=== PATIENT | female | born 1935 | race American Indian/Alaskan Native ===

== ENCOUNTER 2019-01-30 09:09 | Outpatient (CLI) | payer MEDICARE ==
--- NOTE | 2019-01-30 15:10 | Mammography Report ---
UNSUCCESSFUL STEREOTACTIC LEFT BREAST BIOPSY : 01/30/19 09:09:00 CLINICAL: 83-year-old with a single group of upper-outer calcifications. COMPARISON:01/18/19 and 09/01/18 mammograms FINDINGS: Consent for the procedure was obtained. The patient was placed on the stereotactic table. However, successful targeting of the calcifications due to the relative low density and faintness of the calcifications. Targeting was attempted from both lateral and CC from above approaches. IMPRESSION: Unsuccessful targeting for stereotactic biopsy procedure. Recommend 6 month followup left mammogram with magnification views of calcifications if surgical excision is not planned.
== END 2019-01-30 09:10 | disposition home or self-care (01) ==
LOC: SPVWC 09:09
PROVIDERS: ATTEND Surgery
DX: R92.8 Other abnormal and inconclusive findings on diagnostic imaging of breast (principal); R92.0 Mammographic microcalcification found on diagnostic imaging of breast; E78.00 Pure hypercholesterolemia, unspecified; I10 Essential (primary) hypertension; J44.9 Chronic obstructive pulmonary disease, unspecified; Z88.6 Allergy status to analgesic agent; Z79.899 Other long term (current) drug therapy; Z88.5 Allergy status to narcotic agent; Z88.8 Allergy status to other drugs, medicaments and biological substances; Z86.2 Personal history of diseases of the blood and blood-forming organs and certain disorders involving the immune mechanism

== ENCOUNTER 2021-01-14 13:26 | Emergency (ER) | payer MEDICARE ==
[2021-01-14 17:38] VITALS: BP 132/67
--- NOTE | 2021-01-14 18:02 | XRay Report ---
LEFT FOOT 3 VIEW(S) INDICATION / CLINICAL INFORMATION: pain in left foot with hardened callus . Bump on the inside of the left foot above the arch. COMPARISON: None available. FINDINGS: BONES / JOINT(S): No acute fracture or subluxation. Mild hallux valgus deformity. Mildly prominent me dial process of the navicular and the midfoot. SOFT TISSUES: Mild medial midfoot soft tissue swelling. ADDITIONAL FINDINGS: None. Signer Name: Neha Paz MD Signed: 01/14/2021 5:58 PM Workstation Name: [id number]
--- NOTE | 2021-01-14 18:08 | Emergency Department Report ---
ED Extremity Problem HPI - General Chief complaint: Extremity Problem,Nontraumatic Stated complaint: LEFT FOOT PROBLEM Time Seen by Provider: 01/14/21 17:37 Source: patient Mode of arrival: Ambulatory Limitations: No Limitations - History of Present Illness Initial comments: Patient is a 85-year-old female presents emergency room complaints of left foot pain that occurred today. She states that she was taking a bath and using a pumice stone to scrub her feet. She states that she noticed a knot to the bottom of her foot. She denies any fall or injury. She denies any leg swelling or calf pain. She denies any recent travel, recent surgery, recent immobilization. She denies any history of DVT. She states that she does have a instrument lens grinder apprentice Dr. Devi and is planning to see him on January 22, 2021. Past medical history of COPD, diabetes, hypertension, hyperlipidemia. - Related Data Home Medications Medication Instructions Recorded Confirmed Last Taken Biotin [Biotin 1] 1,000 mg PO DAILY 10/18/13 10/25/15 10/23/15 yes Budesoni/Formoterol 80-4.5(Nf) 2 puff INHALATION BID 10/18/13 10/25/15 10/22/15 [Symbicort 80-4.5 (Nf)] 2 PUFF Calcium Carb & Citrate/Vit D3 1 tab PO DAILY 10/18/13 10/25/15 10/22/15 [Calcium + Vitamin D3 Caplet] 1 TAB Multivitamin [Multi-Vitamin Daily] 1 tab PO DAILY 10/18/13 10/25/15 10/22/15 1 TAB Boston-3 Fatty Acids/Fish Oil [Cvs 1 each PO DAILY 10/18/13 10/25/15 10/25/15 Fish Oil 1,200 mg Softgel] yes Theophylline Anhydrous [Edwin-24] 300 mg PO DAILY 10/18/13 10/25/15 10/25/15 yes Triamter/Hctz 37.5-25 mg 37.5 mg PO DAILY 10/18/13 10/25/15 10/25/15 [Maxzide-25] yes Verapamil HCl [Calan Sr] 120 mg PO DAILY 10/18/13 10/25/15 10/25/15 yes allopurinoL [Zyloprim] 300 mg PO QDAY 10/18/13 10/25/15 10/25/15 yes Naproxen [Naproxen TAB] 250 mg PO BID PRN 10/25/15 10/25/15 10/25/15 yes Red Yeast Rice 600 mg PO DAILY 10/25/15 10/25/15 10/25/15 yes Previous Rx's Medication Instructions Recorded Last Taken Type Acetaminophen [Tylenol] 650 mg PO Q8HR PRN #20 capsule 01/14/21 Unknown Rx Allergies Allergy/AdvReac Type Severity Reaction Status Date / Time alendronate sodium Allergy Unknown Verified 01/14/21 17:22 aspirin Allergy Rash Verified 01/14/21 17:22 chocolate flavor Allergy Anaphylaxis Verified 01/14/21 17:22 codeine Allergy Rash Verified 01/14/21 17:22 lactose AdvReac Angioedema Verified 01/14/21 17:22 IV CONTRAST Allergy Anaphylaxis Uncoded 01/14/21 17:22 ED Review of Systems ROS: Stated complaint: LEFT FOOT PROBLEM Other details as noted in HPI Comment: All other systems reviewed and negative ED Past Medical Hx - Past Medical History Hx Hypertension: Yes Hx Diabetes: Yes Hx COPD: Yes Additional medical history: hyperlipidemia - Surgical History Additional Surgical History: Hysterectomy, Inquinal herniorrhaphy, Abdominal heriorrhaphy - Social History Smoking Status: Never Smoker Substance Use Type: None - Medications Home Medications: Home Medications Medication Instructions Recorded Confirmed Last Taken Type Biotin [Biotin 1] 1,000 mg PO DAILY 10/18/13 10/25/15 10/23/15 History yes Budesoni/Formoterol 80-4.5(Nf) 2 puff INHALATION BID 10/18/13 10/25/15 10/22/15 History [Symbicort 80-4.5 (Nf)] 2 PUFF Calcium Carb & Citrate/Vit D3 1 tab PO DAILY 10/18/13 10/25/15 10/22/15 History [Calcium + Vitamin D3 Caplet] 1 TAB Multivitamin [Multi-Vitamin Daily] 1 tab PO DAILY 10/18/13 10/25/15 10/22/15 History 1 TAB [place]-3 Fatty Acids/Fish Oil [Cvs 1 each PO DAILY 10/18/13 10/25/15 10/25/15 History Fish Oil 1,200 mg Softgel] yes Theophylline Anhydrous [Edwin-24] 300 mg PO DAILY 10/18/13 10/25/15 10/25/15 History yes Triamter/Hctz 37.5-25 mg 37.5 mg PO DAILY 10/18/13 10/25/15 10/25/15 History [Maxzide-25] yes Verapamil HCl [Calan Sr] 120 mg PO DAILY 10/18/13 10/25/15 10/25/15 History yes allopurinoL [Zyloprim] 300 mg PO QDAY 10/18/13 10/25/15 10/25/15 History yes Naproxen [Naproxen TAB] 250 mg PO BID PRN 10/25/15 10/25/15 10/25/15 History yes Red Yeast Rice 600 mg PO DAILY 10/25/15 10/25/15 10/25/15 History yes Acetaminophen [Tylenol] 650 mg PO Q8HR PRN #20 capsule 01/14/21 Unknown Rx ED Physical Exam - General Limitations: No Limitations General appearance: alert, in no apparent distress - Head Head exam: Present: atraumatic, normocephalic - Eye Eye exam: Present: normal appearance - ENT ENT exam: Present: mucous membranes moist - Respiratory Respiratory exam: Absent: respiratory distress, accessory muscle use - Extremities Exam Extremities exam: Present: other (small 2 cm nodule present to the left plantar foot, no erythema, no increased warmth, no edema of the LLE, no calf ttp, neurovasculalry intact, FROM of the LLE) - Neurological Exam Neurological exam: Present: alert, oriented X3 - Psychiatric Psychiatric exam: Present: normal affect, normal mood - Skin Skin exam: Present: warm, dry, intact ED Course Vital Signs 01/14/21 17:20 Temperature 98.5 F Pulse Rate 75 Respiratory 18 Rate Blood Pressure 132/67 O2 Sat by Pulse 97 Oximetry ED Medical Decision Making - Radiology Data Radiology results: report reviewed Ordering Physician: RADHA TENORIO Date of Service: 01/14/21 Procedure(s): XR foot 3+V LT Accession Number(s): [id number] cc: RADHA TENORIO Fluoro Time In Minutes: LEFT FOOT 3 VIEW(S) INDICATION / CLINICAL INFORMATION: pain in left foot with hardened callus . Bump on the inside of the left foot above the arch. COMPARISON: None available. FINDINGS: BONES / JOINT(S): No acute fracture or subluxation. Mild hallux valgus deformity. Mildly prominent medial process of the navicular and the midfoot. SOFT TISSUES: Mild medial midfoot soft tissue swelling. ADDITIONAL FINDINGS: None. Signer Name: Neha Paz MD Signed: 01/14/2021 5:58 PM Workstation Name: [id number] Transcribed By: AMBER Dictated By: Luis Fernando Paz MD Electronically Authenticated By: Luis Fernando Paz MD Signed Date/Time: 01/14/211757 DD/ 56 TD/TT: - Medical Decision Making Patient is a 85-year-old female presents emergency room complaints of left foot pain that occurred today. She states that she was taking a bath and using a pumice stone to scrub her feet. She states that she noticed a knot to the bottom of her foot. She denies any fall or injury. She denies any leg swelling or calf pain. She denies any recent travel, recent surgery, recent immobilization. She denies any history of DVT. She states that she does have a instrument lens grinder apprentice Dr. Devi and is planning to see him on January 22, 2021. Past medical history of COPD, diabetes, hypertension, hyperlipidemia. Vitals are normal. On exam:small 2 cm nodule present to the left plantar foot, no erythema, no increased warmth, no edema of the LLE, no calf ttp, neurovasculalry intact, FROM of the LLE. XR left foot: BONES / JOINT(S): No acute fracture or subluxation. Mild hallux valgus deformity. Mildly prominent medial process of the navicular and the midfoot. SOFT TISSUES: Mild medial midfoot soft tissue swelling. ADDITIONAL FINDINGS: None. No signs of cellulitis, septic joint, gout. Patient has no clinical signs of DVT, no leg swelling, no calf pain, negative Homans' sign. Patient given prescription for Tylenol. Advised patient Please take medication as prescribed as needed. May use Epson salt soaks. Rest the foot. Follow-up with your instrument lens grinder apprentice. Follow-up with your primary care doctor. Return to emergency room immediately for any new or worsening s ymptoms including but not limited to leg swelling, increased warmth of the leg, leg redness, calf pain, numbness, weakness, etc. Critical care attestation.: If time is entered above; I have spent that time in minutes in the direct care of this critically ill patient, excluding procedure time. ED Disposition Clinical Impression: Subcutaneous nodule of left foot Disposition: TO HOME OR SELFCARE Is pt being admited?: No Does the pt Need Aspirin: No Condition: Stable Additional Instructions: Please take medication as prescribed as needed. May use Epson salt soaks. Rest the foot. Follow-up with your instrument lens grinder apprentice. Follow-up with your primary care doctor. Return to emergency room immediately for any new or worsening symptoms including but not limited to leg swelling, increased warmth of the leg, leg redness, calf pain, numbness, weakness, etc. Prescriptions: Acetaminophen [Tylenol] 650 mg PO Q8HR PRN #20 capsule PRN Reason: pain Referrals: your, primary care doctor [Other] - 2-3 Days RADHAMES DEVI DPM [Staff Physician] - 2-3 Days Time of Disposition: 18:06 Print Language: GRENADIAN
== END 2021-01-14 19:09 | disposition home or self-care (01) ==
LOC: ED 13:26
DX: R22.42 Localized swelling, mass and lump, left lower limb (principal); I10 Essential (primary) hypertension; E11.9 Type 2 diabetes mellitus without complications; J44.9 Chronic obstructive pulmonary disease, unspecified; E78.5 Hyperlipidemia, unspecified; Z79.899 Other long term (current) drug therapy; Z88.6 Allergy status to analgesic agent; Z88.8 Allergy status to other drugs, medicaments and biological substances; Z90.710 Acquired absence of both cervix and uterus; Z98.890 Other specified postprocedural states

== ENCOUNTER 2021-01-23 11:50 | Outpatient (CLI) | payer MEDICARE ==
--- NOTE | 2021-01-23 17:04 | Vascular Lab Report ---
DUPLEX DOPPLER LOWER EXTREMITY VEINS, BILATERAL INDICATION / CLINICAL INFORMATION: NEOPLASM OF UNSPECIFIED BEHAVIOR OF BONE,SOFT TISSUE SKIN. Leg p ain. TECHNIQUE: Duplex doppler imaging was performed through the veins of both lower extremities using luis ous compression and other maneuvers. COMPARISON: None available. FINDINGS: RIGHT COMMON FEMORAL VEIN: Negative. RIGHT FEMORAL VEIN: Negative. RIGHT POPLITEAL VEIN: Negative. RIGHT CALF VEINS: Negative. LEFT COMMON FEMORAL VEIN: Negative. LEFT FEMORAL VEIN: Negative. LEFT POPLITEAL VEIN: Negative. LEFT CALF VEINS: Negative. ADDITIONAL FINDINGS: None. IMPRESSION: 1. No sonographic evidence for DVT in either lower extremity. Scribed by: Lu Cheek RDMS, RVT Scribed: 01/23/2021 2:38 PM Signer Name: Lucien Cotton MD Signed: 01/23/2021 5:00 PM Workstation Name: [id number]
== END 2021-01-23 11:51 | disposition home or self-care (01) ==
LOC: VAS 11:50
PROVIDERS: ATTEND Podiatrist Foot & Ankle Surgery
DX: D49.2 Neoplasm of unspecified behavior of bone, soft tissue, and skin (principal)
CPT/HCPCS: 93970